=== PATIENT | female | born 1970 | race Caucasian/White ===

== ENCOUNTER 2016-09-20 08:07 | Emergency (ER) | payer BC, OTHER ==
[2016-09-20 08:23] VITALS: BP 107/86; PULSE 107; RESP 18; TEMP 98.4; O2SAT 95
--- NOTE | 2016-09-20 08:44 | UCPHY ---
H & P Patient Type: New Chief Complaint Nursing Narrative: cough, l rib pain with cough x 10 days, r ear pain x 2 days Time Seen by Provider: 09/20/16 08:35 HPI/ROS: CHIEF COMPLAINT: left rib pain HISTORY OF PRESENT ILLNESS: The patient is a 45-year-old female who comes to the Urgent Care complaining of left-sided pleuritic rib pain as well as a cough for the last 10 days. She states that she also has had some pain in her ears right greater than left for the last 2 days. Fevers. No chest pain. Nausea vomiting or GI symptoms. No diaphoresis. She does smoke. No recent travel. No leg pain or swelling. She also has had sinus congestion. REVIEW OF SYSTEMS: Constitutional: denies: chills, fever, recent illness, recent injury EENTM: denies: See HPI Respiratory: See HPI Cardiac: denies: chest pain, irregular heart rate, lightheadedness, palpitations Gastrointestinal/Abdominal: denies: abdominal pain, diarrhea, nausea, vomiting, blood streaked stools Genitourinary: denies: dysuria, frequency, hematuria, pain Musculoskeletal: denies: joint pain, muscle pain Skin: denies: lesions, rash, jaundice, bruising Neurological: denies: headache, numbness, paresthesia, tingling, dizziness, weakness Hematologic/Lymphatic: denies: blood clots, easy bleeding, easy bruising Immunologic/allergic: denies: HIV/AIDS, transplant EXAM: GENERAL: Well-appearing, well-nourished and in no acute distress. HEAD: Atraumatic, normocephalic. EYES: Pupils equal round and reactive to light, extraocular movements intact, sclera anicteric, conjunctiva are normal. ENT: Sinus congestion, erythematous tympanic membranes, NECK: Left lower lobe rhonchi LUNGS: Breath sounds clear to auscultation bilaterally and equal. No wheezes rales or rhonchi. HEART: Regular rate and rhythm without murmurs, rubs or gallops. ABDOMEN: Soft, nontender, normoactive bowel sounds. No guarding, no rebound. No masses appreciated. BACK: No CVA tenderness, no spinal tenderness, step-offs or deformities EXTREMITIES: Normal range of motion, no pitting or edema. No clubbing or cyanosis. NEUROLOGICAL: Cranial nerves II through XII grossly intact. Normal speech, normal gait. 5/5 strength, normal movement in all extremities, normal sensation PSYCH: Normal mood, normal affect. SKIN: Warm, dry, normal turgor, no visible rashes or lesions. Source: Patient Exam Limitations: No limitations - Personal History LMP (Females 10-55): Hysterectomy - Medical/Surgical History Hx Asthma: No Hx Chronic Respiratory Disease: No Hx Diabetes: No Hx Cardiac Disease: No Hx Renal Disease: No Hx Cirrhosis: No Hx Alcoholism: No Other PMH: denies - Family History Significant Family History: No pertinent family hx - Social History Smoking Status: Current every day smoker Alcohol Use: None Drug Use: None Constitutional: Initial Vital Signs Temperature (C) 36.9 C 09/20/16 08:21 Heart Rate 107 H 09/20/16 08:21 Respiratory Rate 18 09/20/16 08:21 Blood Pressure 107/86 H 09/20/16 08:21 O2 Sat (%) 95 09/20/16 08:21 O2 Delivery Mode Room Air Allergies/Adverse Reactions: No Known Allergies Allergy (Unverified 09/20/16 08:20) Home Medications: Medication Instructions Recorded SIMVASTATIN 09/20/16 levOFLOXACIN [levAQUIN] 750 mg PO DAILY #10 tab 09/20/16 Medical Decision Making - Diagnostics EKG Interpretation: An EKG obtained and was read and documented in trace view. Please see trace view for full reading and report. , sinus rhythm, no ischemic changes or signs of right heart strain Imaging: X-ray: chest x-ray was obtained. I viewed the images myself on the PACS system. My interpretation of the images is: Left-sided pneumonia. The radiologist interpretation is left-sided pneumonia. ED Course/Re-evaluation: We discussed the EKG, chest x-ray results. I will start the patient on Levaquin. I warned her about possible complications of Levaquin. She is happy with this and declines further workup or testing at this time. Differential Diagnosis: Partial list of the Differential diagnosis considered include but were not limited to; pneumonia, PE, bronchitis and although unlikely based on the history and physical exam, I also considered acute coronary disease, pneumothorax. I discussed these differential diagnoses and the plan with the patient as well as the usual and expected course. The patient understands that the diagnosis is provisional and that in medicine we are not always correct and that further workup is often warranted. Usual and customary warnings were given. All of the patient's questions were answered. The patient was instructed to return to the emergency department should the symptoms at all worsen or return, otherwise to followup with the physician as we discussed. Departure - Departure Disposition: Home, Routine, Self-Care Clinical Impression: Pneumonia Qualifiers: Pneumonia type: due to unspecified organism Laterality: left Lung location: unspecified part of lung Qualified Code(s): J18.9 - Pneumonia, unspecified organism Condition: Fair Instructions: Pneumonia (ED) Referrals: Maksim Feldman MD [Primary Care Provider] - As per Instructions Prescriptions: levOFLOXACIN [levAQUIN] 750 mg PO DAILY #10 tab - PQRS PQRS Measurement: Not applicable
--- NOTE | 2016-09-20 08:52 | CPEKG ---
Heart Rate: 93 RR Interval: 645 P-R Interval: 128 QRSD Interval: 84 QT Interval: 364 QTC Interval: 453 P [place]: 72 QRS [place]: 68 T Wave [place]: 45 EKG Severity - ABNORMAL ECG - EKG Impression: SINUS RHYTHM EKG Impression: ERIKA, CONSIDER BIATRIAL ABNORMALITIES Electronically Signed By: Sy Bonner 20-Sep-2016 09:03:55
== END 2016-09-20 10:40 | disposition home or self-care (01) ==
LOC: CED 08:07
DX: J18.9 Pneumonia, unspecified organism (principal); H92.03 Otalgia, bilateral; Z72.0 Tobacco use
CPT/HCPCS: 71020-PO; 93010-PO; 99204-PO; G0463-PO